=== PATIENT | male | born 1955 | race Caucasian/White ===

== ENCOUNTER → 2021-02-15 | Outpatient (CLI) | payer MEDICARE ==
--- NOTE | 2021-02-15 13:54 | US ---
EXAMINATION TYPE: US duplex aorta DATE OF EXAM: 02/15/2021 COMPARISON: NONE CLINICAL HISTORY: I10 HTN,Z136 SCREEN FOR CARDIOVASCULAR. AAA screening EXAM MEASUREMENTS: Abdominal Aorta: Proximal: 2.0 x 1.8 cm Mid: 1.7 x 1.7 cm Distal: 1.7 x 1.8 cm Bifurcation: MIRELLA: 1.0 x 0.9 cm TORITO: 0.9 x 0.9 cm No evidence of AAA IMPRESSION: 1. No evidence of abdominal aortic aneurysm.
== END | disposition home or self-care (01) ==
LOC: RADUSWWP 09:34
PROVIDERS: ATTEND Family Medicine
DX: Z13.6 Encounter for screening for cardiovascular disorders (principal); I10 Essential (primary) hypertension
CPT/HCPCS: 93979

== ENCOUNTER → 2021-08-08 | Outpatient (CLI) | payer MEDICARE ==
--- NOTE | 2021-08-09 09:34 | EST ---
EXERCISE STRESS INDICATION: Of Chest pain. REFERRING PHYSICIAN: Dr. Lane. AGE: 66 SEX: M HT: 5'9" WT: 222 lbs. PROTOCOL: STAGE: 3 DURATION OF EXERCISE: 9:00 HEART RATE REST: 63 BLOOD PRESSURE REST: 127/85 MAXIMUM HEART RATE ACHIEVED: 149 MAXIMUM BLOOD PRESSURE: 158/111 85% MPHR: 131 100% MPHR: 154 METS: 10.3 INDICATIONS: Chest pain STRESS DATA: Heart rate is 63, pressure 127/75 mmHg. Baseline EKG showed sinus mechanism. The patient exercised on the treadmill according to James protocol for a total of 9 minutes and achieved 10.3 METS with max heart rate was 149, which is about 97% of maximum predicted heart rate. Maximum blood pressure was 158/111 mmHg. Clinically, the patient did not have any symptoms. The EKG did not show significant ST or T-wave abnormalities concerning for ischemia. CONCLUSION: 1. Excellent exercise tolerance. 2. Normal EKG in response to exercise. 3. Essentially normal stress test for the patient. MMODL / IJN: [id number] /
== END | disposition home or self-care (01) ==
LOC: RADNMMAIN 08:42
PROVIDERS: ATTEND Family Medicine
DX: R07.9 Chest pain, unspecified (principal); I10 Essential (primary) hypertension
CPT/HCPCS: 93017

== ENCOUNTER → 2023-05-07 | Outpatient (CLI) | payer MEDICARE ==
--- NOTE | 2023-05-07 12:13 | P.SLEEP ---
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 Patient has history of obstructive and central sleep apnea diagnosed about 13 years ago. Since that time patient is on treatment on ASV and patient continued to use equipment every night. Patient was not seen in our center for 13 years. ASV unit is very old, partially broken. SLEEP SCHEDULE: Usually sleep schedule from 2 AM until 6 AM 7 days a week. FALLING ASLEEP: No problems with falling asleep. DURING SLEEP: Patient wakes up from sleep up to 3 times, has episodes of stop breathing during the sleep. No history of hypnogogical hallucinations, sleep paralysis, or cataplexy. DURING THE DAY/WAKE STATE: Patient feels significant sleepiness during the day. [place] sleepiness scale is 10, while patient is on treatment with modafinil 250 mg, which is maximal dose. Patient takes multiple naps during the day. PAST MEDICAL HISTORY: Hypertension. PAST SURGICAL HISTORY: Tonsillectomy, adenoidectomy. MEDICATIONS: R modafinil 250 mg once a day, lisinopril. SOCIAL HISTORY: Quit smoking many years ago, alcohol consumption occasional. FAMILY HISTORY: Heart problems, stroke, cancer, emphysema. REVIEW OF SYSTEMS: Awakenings from sleep, sleepiness during the day. No fevers. No double vision. No recent chest pain. No shortness of breath. No abdominal pain. No bleeding episodes. No blood in urine. No seizure episodes. PHYSICAL EXAMINATION: GENERAL: A pleasant patient without any distress. VITAL SIGNS: BP 142/88, HR 78, RR 16, weight 230.6 pounds, height 5 foot 9 inches, body mass index 33.9. HEENT: PERRLA, EOMI. Evaluation of oropharynx showed tongue protrudes midline, low position of soft palate Mallampati 3. NECK: Supple. No JVD. Thyroid is not palpable. 17-3/4 inches in circumference. LUNGS: Clear to percussion and to auscultation. Good air exchange. No wheezing or rhonchi. HEART: S1, S2 regular. No murmurs, gallops or rubs. ABDOMEN: Soft and nontender. Bowel sounds are present. No organomegaly appreciated. EXTREMITIES: No clubbing or cyanosis. MMD UNIT TEACHER: Awake, alert, and oriented x3. Cranial nerves 2 to 7 intact. There is no fasciculation or atrophy noted. No focal deficits observed. ASSESSMENT: 1. 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 Patient is on treatment with ASV, which is old and partially broken. 2. 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 3. Hypertension. 4. Status post tonsillectomy and adenoidectomy. PLAN: 1. Polysomnography for evaluation of patient's breathing during sleep at the present time. 2. Following plan after reading sleep study 3. To get results of previous sleep studies 4. No driving if patient feels any sleepiness. Patient is aware of civil and criminal liability for unsafe driving. 5. Sleep hygiene with regular sleep time for at least 7.5-8 hours. 6. Watching weight. 7. Patient will need echocardiogram to evaluate ejection fraction if he'll need treatment with ASV at the present time. Thank you very much for referring this patient for consultation. Sincerely, Scooby Govea MD, PhD, FAASM. Diplomat of [place], Sleep Medicine Board by [employer] [employer] [facility] [place] Sleep Note - Sleep Note Sleep Note: Temperature: Pulse Rate: Respiratory Rate: Blood Pressure: SpO2: Height: Weight: BMI: Neck Circumference:
== END ==
LOC: 3 N SLEEP 11:11
PROVIDERS: ATTEND Internal Medicine
DX: G47.33 Obstructive sleep apnea (adult) (pediatric) (principal); G47.31 Primary central sleep apnea; I10 Essential (primary) hypertension; Z98.890 Other specified postprocedural states; Z90.89 Acquired absence of other organs; Z79.899 Other long term (current) drug therapy; Z87.891 Personal history of nicotine dependence
CPT/HCPCS: 99211

== ENCOUNTER 2023-06-15 19:41 | Outpatient (CLI) | payer MEDICARE | END 2023-06-16 04:45 | disposition home or self-care (01) | LOC: 3 N SLEEP 19:41 | PROVIDERS: ATTEND Internal Medicine | DX: G47.33 Obstructive sleep apnea (adult) (pediatric) (principal) | CPT/HCPCS: 95810 ==

== ENCOUNTER 2023-06-30 19:32 | Outpatient (CLI) | payer MEDICARE ==
--- NOTE | 2023-07-02 10:29 | P.PCN ---
Description of Procedure: CLINICAL: Titration with positive air pressure has been done for correction of respiratory abnormalities during sleep. DESCRIPTION OF PROCEDURE: The standard montage for clinical polysomnography included the electroencephalogram, the electrocardiogram, the mentalis surface electromyography and Lead II cardiography. The respiratory battery consisted of measurements of nasal /buccal air flow, pressure transducer measurements from the nose, thoracic and /or abdominal effort and intercostal surface electromyography. Video monitoring has been done to check for any parasomnia events. Nocturnal oxyhemoglobin saturations were obtained by finger oximetry. Step-perry titration with positive airway pressure was utilized to control respiratory events. Raw data of sleep recording has been reviewed and is adequate. RESULTS: Sleep efficiency was significantly decreased to 71.0 %. Latency to sleep onset was short 6.0 minutes.]. Sleep architecture showed stage N1 was significantly increased to 18.1 %, Delta sleep was slightly short 4.5 %, REM sleep was extremely short 6.0 %. Heart rate was minimum 56 BPM, maximum 65 BPM, average 61 BPM. EMG showed 4.0 periodic limb movements per hour with 4.0 micriarousals per hour. PAP titration have been done with CPAP up to the pressure 9 cm H2O. Patient had problems with CPAP, switched to BPAP. BPAP titrated up to 18/14 cm H2O. The best results were at the pressure 17/13 cm H2O. Apnea hypopnea index reduced to 10.1. IMPRESSION: 1. Severe Obstructive sleep apnea hypopnea syndrome improved with BPAP treatment. 2. No significant periodic limb movements have been documented. Please see other impressions from consultation. PLAN: 1. The patient will have treatment with positive air pressure equipment with the level of pressure AutoBPAP with maximal inspiratory pressure 20 and minimal expiratory pressure 7 cm H2O and should use it every night for the whole night. 2. Watching and losing weight. 3. Sleep hygiene with regular time in bed for at least 8 hours. 4. No driving if feeling any sleepiness. 5. I will see the patient for follow up visit to explain the results of the test, recommendations, check compliance with treatment and make any necessary adjustment related to mask fitting, pressure and humidification. Thank you very much for allowing me to participate in the management of your patient. Sincerely, Scooby Govea MD, PhD, FAASM Diplomat of [employer] [employer] Sleep Medicine Board of [place] [employer] [facility] [place]
== END 2023-07-01 06:00 | disposition home or self-care (01) ==
LOC: 3 N SLEEP 19:32
PROVIDERS: ATTEND Internal Medicine
DX: G47.33 Obstructive sleep apnea (adult) (pediatric) (principal)
CPT/HCPCS: 95811